=== PATIENT | male | born 1995 ===

== ENCOUNTER 2018-03-28 18:11 | Emergency (ER) | payer BC ==
[2018-03-28 18:29] VITALS: BP 126/77; PULSE 80; RESP 18; TEMP 99.4; O2SAT 98
--- NOTE | 2018-03-28 19:52 | C.PDOC ---
History Of Present Illness 22 year old male presents to the emergency department complaining of swelling on his left upper eyelid and photophobia since 3 days ago. The patient states that he went to his PMD and was sent to an gelatin plant supervisor. 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 Patient also notes of a lesion on his left eyelid and a painful lump behind his left ear. He denies any fever, chills, headache, dizziness, or nausea. Time Seen by Provider: 03/28/18 18:32 Chief Complaint (Nursing): Medical Clearance History Per: Patient History/Exam Limitations: no limitations Onset/Duration Of Symptoms: Days Current Symptoms Are (Timing): Still Present Past Medical History Reviewed: Historical Data, Nursing Documentation, Vital Signs Vital Signs: Last Vital Signs Temp 99.4 F 03/28/18 18:27 Pulse 80 03/28/18 18:27 Resp 18 03/28/18 18:27 BP 126/77 03/28/18 18:27 Pulse Ox 98 03/28/18 21:26 Family History: States: No Known Family Hx - Social History Hx Alcohol Use: No Hx Substance Use: No Review Of Systems Except As Marked, All Systems Reviewed And Found Negative. Constitutional: Negative for: Fever, Chills Eyes: Positive for: Other (Photophobia). Negative for: Pain Cardiovascular: Negative for: Chest Pain Respiratory: Negative for: Shortness of Breath Gastrointestinal: Negative for: Nausea, Vomiting Neurological: Negative for: Weakness, Numbness Physical Exam - Physical Exam Appears: Non-toxic, No Acute Distress Skin: Warm, Dry, No Rash, Other (Lesion on left eyebrow) Head: Atraumatic, Normacephalic, Other (Enlarged tender lymph nodes in postauricular area on left side; multiple lesions on L side of scalp) Eye(s): bilateral: PERRL, EOMI, Other (Crusted lesion and swollen on upper L eyelid an dleft eyebrow) Ear(s): Bilateral: Normal Oral Mucosa: Moist Throat: Normal, No Erythema, No Exudate, No Drooling Neck: Normal ROM, Supple Chest: Symmetrical, No Tenderness Cardiovascular: Rhythm Regular Respiratory: Normal Breath Sounds Neurological/Psych: Oriented x3, Normal Speech, Normal Cognition, Normal Cranial Nerves, Normal Motor, Normal Sensation Gait: Steady ED Course And Treatment O2 Sat by Pulse Oximetry: 98 (RA) Pulse Ox Interpretation: Normal Progress Note: Discussed case with ED attending Dr. Keller who came and examined patient at bedside, and agreed that presentation is most likely secondary to herpes zoster with ? bacterial superinfection. Cleocin and Zovirax po administered. Patient is stable, will be discharged home and was instructed to follow up with gelatin plant supervisor. Disposition - Disposition Disposition: HOME/ ROUTINE Disposition Time: 19:49 Condition: STABLE Additional Instructions: Follow up with your PMD and [employer] [facility] within 1-2 days. Return to ED if feel worse. Prescriptions: Clindamycin [Cleocin] 300 mg PO Q6 #28 cap Ibuprofen [Motrin Tab] 600 mg PO Q8 #30 tab Valacyclovir HCl [Valtrex] 1 gm PO TID #30 tablet Instructions: [place] (DC) Forms: [employer] ([place]ese) Print Language: AZERI - Clinical Impression Clinical Impression: Shinglcharles - PA / RECEPTIONIST NURSE / Resident Statement MD/DO has reviewed & agrees with the documentation as recorded. - Scribe Statement The provider has reviewed the documentation as recorded by the Scribe All medical record entries made by the Scribe were at my direction and personally dictated by me. I have reviewed the chart and agree that the record accurately reflects my personal performance of the history, physical exam, medical decision making, and the department course for this patient. I have also personally directed, reviewed, and agree with the discharge instructions and disposition.
== END 2018-03-28 19:58 | disposition home or self-care (01) ==
LOC: C.ER 18:11
DX: B02.9 Zoster without complications (principal)